=== PATIENT | female | born 1960 | race Hispanic/Latino ===

== ENCOUNTER → 2025-02-12 | Outpatient (CLI) | payer OTHER ==
[~2025-02-12] MED LIST: AMLO-257 PO; LOSA50TA64 PO; METF-444 PO; METO-391 PO; SPIR25TA6 PO
--- NOTE | 2025-02-12 09:28 | HMCIMG ---
US ABDOMINAL COMPLETE HISTORY: Fatty liver COMPARISON: None TECHNIQUE: Multiple transverse and longitudinal ultrasound images of the abdomen were obtained. FINDINGS: Abdominal aorta is not well visualized due to overlying bowel gas and patient's large body habitus. Flow is seen. Vena cava. Liver measures 16 cm. The visualized portion of the pancreas is within normal limits. Liver is echogenic consistent with liver parenchymal disease. Bladder has been removed. Common duct measures 7 mm. Both kidneys are seen. Right kidney measures 11.7 x 4.6 x 5.5cm. Left kidney measures 10 x 5.4 x 5.1 cm. No hydronephrosis is seen of the both kidneys. The spleen is grossly unremarkable. IMPRESSION: 1. Post cholecystectomy. No ductal dilatation is seen. 2. No hydronephrosis is seen.
== END | disposition home or self-care (01) ==
LOC: RAH 07:56
PROVIDERS: ATTEND Internal Medicine
DX: K76.0 Fatty (change of) liver, not elsewhere classified (principal); R14.0 Abdominal distension (gaseous); Z90.49 Acquired absence of other specified parts of digestive tract; Z90.6 Acquired absence of other parts of urinary tract
CPT/HCPCS: 76700

== ENCOUNTER → 2025-07-19 | Outpatient (CLI) | payer OTHER ==
--- NOTE | 2025-07-19 09:55 | HMCIMG ---
EXAM: US Abdomen complete CLINICAL HISTORY: FATTY LIVER TECHNIQUE: Real-time ultrasound of the abdomen (complete) with image documentation. COMPARISON: 02/12/2025. FINDINGS: LIVER: Liver is mildly echogenic. GALLBLADDER: Status post cholecystectomy. COMMON BILE DUCT: No dilation. PANCREAS: Unremarkable where visualized. The distal pancreas is obscured by overlying bowel gas. KIDNEYS: Normal renal contours. No renal mass or calculus. No hydronephrosis. SPLEEN: Normal in size and echogenicity. No mass identified. AORTA: No aneurysm. IVC: Unremarkable as visualized. MISCELLANEOUS: No other significant findings identified. IMPRESSION: 1. Mild hepatic steatosis. 2. Status post cholecystectomy. /Prashant
== END | disposition home or self-care (01) ==
LOC: RAH 07:33
PROVIDERS: ATTEND Internal Medicine
DX: K76.0 Fatty (change of) liver, not elsewhere classified (principal); R60.0 Localized edema; I10 Essential (primary) hypertension; M16.9 Osteoarthritis of hip, unspecified; I87.309 Chronic venous hypertension (idiopathic) without complications of unspecified lower extremity; R53.83 Other fatigue; E66.01 Morbid (severe) obesity due to excess calories; Z90.49 Acquired absence of other specified parts of digestive tract; Z68.42 Body mass index [BMI] 45.0-49.9, adult
CPT/HCPCS: 76700